=== PATIENT | female | born 1950 | race African-American/Black ===

== ENCOUNTER → 2018-12-17 | Day surgery (SDC) | payer OTHER, BC | LOC: JRADIR 08:41 ==

== ENCOUNTER 2018-12-18 07:53 | Day surgery (SDC) | payer OTHER, BC ==
[2018-12-17 14:32] VITALS: BMI 33.8
[2018-12-18 11:26] VITALS: TEMP 97.8
[2018-12-18 12:05] VITALS: BP 122/66; PULSE 60
--- NOTE | 2018-12-21 16:27 | PATH ---
Surgical Pathology Report Patient Name: TESSA [facility]AMEY [facility]. Rec. #: [id number] /Age/Gender: 1950 (Age: 68) / F Account: [id number] Location: U-ENDOSCOPY Taken: 12/18/2018 Received: 12/18/2018 Reported: 12/21/2018 Physicians: Tyrell Cruz M.D. Specimen(s) Received A: RECTAL POLYP B: CECAL POLYP BX C: BX SIGMOID COLON POLYP Clinical History History of dysplastic polyp Post-operative diagnosis: Polyps Final Diagnosis A. RECTAL POLYPS, POLYPECTOMY: HYPERPLASTIC POLYP, THREE FRAGMENTS. B. CECAL POLYP, POLYPECTOMY: TUBULAR ADENOMA. C. SIGMOID COLON POLYP, BIOPSY: POLYPOID COLONIC MUCOSA WITH FOCAL SURFACE HYPERPLASTIC CHANGE. Electronically Signed Alan Henderson M.D. Gross Description A. Received in formalin, labeled "rectal polyps" are 3 pham, irregular portions of soft tissue measuring 0.2 to 0.3 cm. in greatest dimension. The specimens are submitted in toto in one cassette. B. Received in formalin, labeled "cecal polyp" is a pham, irregular portion of soft tissue measuring 0.3 cm. in greatest dimension. The specimens are submitted in toto in one cassette. C. Received in formalin, labeled "sigmoid colon polyp" are 2 pham, irregular portions of soft tissue measuring 0.1 to 0.2 cm. in greatest dimension. The specimens are submitted in toto in one cassette. KWRogers/12/21/2018 harley/12/21/2018
== END 2018-12-18 12:05 | disposition home or self-care (01) ==
LOC: JASU-ENDO 07:53
PROVIDERS: ATTEND Internal Medicine Gastroenterology
PROC: 0DBE8ZX Excision of Large Intestine, Via Natural or Artificial Opening Endoscopic, Diagnostic (ICD-10-PCS; 2018-12-18)
PROC: 0DBN8ZX Excision of Sigmoid Colon, Via Natural or Artificial Opening Endoscopic, Diagnostic (ICD-10-PCS; 2018-12-18)
PROC: 0DBP8ZX Excision of Rectum, Via Natural or Artificial Opening Endoscopic, Diagnostic (ICD-10-PCS; principal; 2018-12-18 09:30)
DX: Z12.11 Encounter for screening for malignant neoplasm of colon (principal); D12.5 Benign neoplasm of sigmoid colon; K64.8 Other hemorrhoids; K57.30 Diverticulosis of large intestine without perforation or abscess without bleeding; K62.1 Rectal polyp; Z86.010 Personal history of colon polyps
CPT/HCPCS: 88305-TC

== ENCOUNTER → 2023-12-17 | Day surgery (SDC) | payer OTHER, BC | END | disposition home or self-care (01) | LOC: JRADIR 08:43 | PROVIDERS: ATTEND Internal Medicine Gastroenterology | PROC: 05HY33Z Insertion of Infusion Device into Upper Vein, Percutaneous Approach (ICD-10-PCS; principal; 2023-12-17) | DX: Z45.2 Encounter for adjustment and management of vascular access device (principal) | CPT/HCPCS: 36569; 36573 ==

== ENCOUNTER 2023-12-19 04:29 | Day surgery (SDC) | payer OTHER, BC ==
[2023-12-17 11:07] VITALS: BMI 32.1
[2023-12-19 07:14] VITALS: TEMP 97.6
[2023-12-19 09:08] VITALS: RESP 15
[2023-12-19 09:52] LABS: BASO % 0.5 % (0-2.0); EOS % 2.9 % (0-4.5); HEMATOCRIT 32.5 % (32.4-45.2); HEMOGLOBIN 10.8 GM/dL (10.7-15.3); LYMPH % 24.3 % (8-40); MCH 30.4 pg (25.7-33.7); MCHC 33.4 g/dl (32.0-36.0); MEAN CELL VOLUME 90.9 fl (80-96); MEAN PLT VOLUME 8.1 fl (7.5-11.1); MONO % 10.1 % (3.8-10.2); NEUT % 62.2 % (42.8-82.8); PLATELET COUNT 208 10^3/uL (134-434); RBC 3.57 M/mm3 (3.60-5.2); RDW 13.9 % (11.6-15.6); WHITE BLOOD COUNT 6.2 K/mm3 (4.0-10.0)
[2023-12-19 09:59] LABS: INR 1.05 (0.83-1.09); PROTHROMBIN TIME (PATIENT) 12.1 SEC (9.7-13.0)
[2023-12-19 10:13] LABS: CHLORIDE 112 mmol/L (98-107); POTASSIUM 3.6 mmol/L (3.5-5.1); SODIUM 141 mmol/L (136-145)
[2023-12-19 10:16] LABS: ALBUMIN 3.4 g/dl (3.4-5.0); CALCIUM 8.8 mg/dL (8.5-10.1)
[2023-12-19 10:17] LABS: ANION GAP 4 mmol/L (4-13); BLOOD UREA NITROGEN 11.3 mg/dL (7-18); CO2 25 mmol/L (21-32); GLUCOSE,RANDOM 92 mg/dL (74-106)
[2023-12-19 10:18] LABS: CREATININE 0.9 mg/dL (0.55-1.3); SGOT/AST 81 U/L (15-37); SGPT/ALT 97 U/L (13-61)
[2023-12-19 10:19] LABS: IRON SERUM 41 ug/dL (50-175); TOTAL IRON BINDING CAPACITY 324 ug/dL (250-450)
[2023-12-19 10:21] LABS: BILIRUBIN,TOTAL 0.6 mg/dL (0.2-1)
[2023-12-19 10:22] LABS: TOT PROT 6.8 g/dl (6.4-8.2)
[2023-12-19 10:23] LABS: ALK PHOS 90 U/L (45-117)
[2023-12-19 13:45] VITALS: BP 125/72; PULSE 65
[2023-12-19 19:42] LABS: HEPATITIS B SURFACE AG MATERN NON-REACTIVE (NONREACTIVE)
[2023-12-20 07:11] LABS: ALPHA-1-ANTITRYPSIN SERUM 146 mg/dL (101-187)
[2023-12-20 17:13] LABS: MITOCHONDRIAL AB <20.0 Units (0.0-20.0)
== END 2023-12-19 09:30 | disposition home or self-care (01) ==
LOC: JASU-ENDO 04:29
PROVIDERS: ATTEND Internal Medicine Gastroenterology
PROC: 0DBK8ZX Excision of Ascending Colon, Via Natural or Artificial Opening Endoscopic, Diagnostic (ICD-10-PCS; 2023-12-19)
PROC: 0DBH8ZX Excision of Cecum, Via Natural or Artificial Opening Endoscopic, Diagnostic (ICD-10-PCS; 2023-12-19)
PROC: 0DBA8ZX Excision of Jejunum, Via Natural or Artificial Opening Endoscopic, Diagnostic (ICD-10-PCS; 2023-12-19)
PROC: 0DBH8ZX Excision of Cecum, Via Natural or Artificial Opening Endoscopic, Diagnostic (ICD-10-PCS; principal; 2023-12-19 08:00)
DX: Z12.11 Encounter for screening for malignant neoplasm of colon (principal); D12.0 Benign neoplasm of cecum; D12.2 Benign neoplasm of ascending colon; D17.5 Benign lipomatous neoplasm of intra-abdominal organs; K64.8 Other hemorrhoids; K64.4 Residual hemorrhoidal skin tags; K57.30 Diverticulosis of large intestine without perforation or abscess without bleeding; Z98.0 Intestinal bypass and anastomosis status; Z98.84 Bariatric surgery status
CPT/HCPCS: 36415; 80053; 82103; 82390; 82728; 83516; 83540; 83550; 85025; 85610; 86038; 86140; 86704; 86803; 87340; 87517; 87522; 88305-TC; 88342-TC